=== PATIENT | male | born 1990 | race Caucasian/White ===

== ENCOUNTER 2017-01-15 21:51 | Emergency (ER) | payer OTHER ==
[~2017-01-15] VITALS: Ht 182.9 cm; Wt 143.9 kg
[2017-01-15 22:04] VITALS: BP 148/95; PULSE 110; TEMP 36.8; O2SAT 95; Ht 182.9 cm; Wt 143.9 kg
--- NOTE | 2017-01-15 22:21 | EMERGENCY ROOM VISIT NOTE ---
History Report prepared by Gaston: Joel Garcia Under the Supervision of: Dr. Jean Trevino D.O. First contact with patient: 22:10 Chief Complaint: HIP PAIN Stated Complaint: R HIP PAIN History of Present Illness The patient is a 26 year old male who presents to the Emergency Room with complaints of constant right hip pain beginning a few hours prior to arrival. 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 The patient notes he tried to catch himself and pulled something in his right hip. The patient denies falling. He describes his discomfort as dull, but it worsens and becomes sharp with movement. The patient currently rates his discomfort as an 8/10 in severity. He notes he is too poor to afford nonslip shoes at work. 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 A total of 10 systems reviewed and were otherwise negative. Past Medical & Surgical Medical Problems: (1) Stomach problems (2) Viral URI Family History Diabetes mellitus Social History Smoking Status: Former Smoker Alcohol Use: occasionally Drug Use: none Marital Status: in relationship Housing Status: lives with family Occupation Status: employed Current/Historical Medications Scheduled Bupropion (Wellbutrin Sr), 150 MG PO DAILY Scheduled PRN Alprazolam (Xanax), 0.5 MG PO DAILY PRN for Anxiety Allergies Coded Allergies: No Known Allergies (Unverified , 01/15/17) Physical Exam Vital Signs Date Time Temp Pulse Resp B/P Pulse Ox O2 Delivery O2 Flow Rate FiO2 01/15/17 22:04 36.8 110 20 148/95 95 Room Air Physical Exam CONSTITUTIONAL/VITAL SIGNS: Reviewed / noted above. GENERAL: Non-toxic in appearance. INTEGUMENTARY: Warm, dry, and [place]. HEAD: Normocephalic. EYES: without scleral icterus or trauma. ENT/OROPHARYNX: clear and moist. LYMPHADENOPATHY/NECK: Is supple without lymphadenopathy or meningismus. RESPIRATORY: Lungs clear and equal. CARDIOVASCULAR: Regular rate and rhythm. GI/ABDOMEN: Soft and nontender. No organomegaly or pulsatile mass. No rebound or guarding. Normal bowel sounds. EXTREMITIES: On exam the right groin area does not reveal any obvious abnormalities. No appreciated hernia in the inguinal region or right testicle. Warm and well perfused. BACK: No CVA tenderness. NEUROLOGICAL: Intact without focal deficits. PSYCHIATRIC: normal affect. MUSCULOSKELETAL: Normally developed with good muscle tone. Medical Decision & Procedures ED Course 2213: Previous medical records were reviewed. The patient was evaluated in room B10. A complete history and physical examination was performed. 2222: On reevaluation, the patient is doing well. I discussed the results and findings with the patient. He verbalized agreement of the treatment plan. The patient was discharged home. Medical Decision Etiologies such as fracture, dislocation, neurovascular compromise, compartment syndrome, soft tissue injury, as well as others were entertained. This is a 26-year-old male who presents to the ED with a chief complaint of right groin pain. The patient states that he slipped on some water while he was working. He states that he cannot afford nonslip shoes and slipped on the floor at work. 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 He states that he feels like he pulled the muscles in his right groin. The patient reports no additional injury. He denies falling. His exam reveals some mild discomfort in the right groin area. There is no obvious hernias. There is no other obvious abnormalities. I do not suspect osseous injury. After evaluating the patient, he is felt to be stable for discharge. I suspect he strained his groin musculature. Impression Primary Impression: Groin strain Scribe Attestation The scribe's documentation has been prepared under my direction and personally reviewed by me in its entirety. I confirm that the note above accurately reflects all work, treatment, procedures, and medical decision making performed by me. Departure Information Dispostion Home / Self-Care Referrals No Doctor, Assigned (PCP) Forms HOME CARE DOCUMENTATION FORM, IMPORTANT VISIT INFORMATION, WORK / SCHOOL INSTRUCTIONS Patient Instructions My [facility] [place] [employer] [facility] [employer] Additional Instructions Follow-up with your employee health doctor for further care and evaluation in 1- 2 days if symptoms persist. Return to the emergency department for worsening or new symptoms or any concerns. You have been examined and treated today on an emergency basis only. This is not a substitute for, or an effort to provide, complete comprehensive medical care. It is impossible to recognize and treat all injuries or illnesses in a single emergency department visit. It is therefore important that you follow up closely with your doctor. Call as soon as possible for an appointment. Take Tylenol / Motrin for pain. Work Instructions Return To Work: 2 days
[2017-01-15] MEDS ORDERED: BUPR-79 PO (22:32)
[2017-01-15] MEDS ORDERED: ALPR-411 PO (22:33)
== END 2017-01-15 22:38 | disposition home or self-care (01) ==
LOC: C.EDB 21:52
DX: S76.211A Strain of adductor muscle, fascia and tendon of right thigh, initial encounter (principal); Z79.899 Other long term (current) drug therapy; Z87.19 Personal history of other diseases of the digestive system; Z87.891 Personal history of nicotine dependence; Z87.898 Personal history of other specified conditions; Z83.3 Family history of diabetes mellitus; W01.0XXA Fall on same level from slipping, tripping and stumbling without subsequent striking against object, initial encounter; Y99.0 Civilian activity done for income or pay